=== PATIENT | female | born 1955 | race Hispanic/Latino ===

== ENCOUNTER 2022-08-19 21:04 | Emergency (ER) | payer BC ==
[~2022-08-19] VITALS: Ht 160 cm; Wt 60.8 kg
[2022-08-19 23:27] VITALS: BP 156/71
== END 2022-08-19 23:27 | disposition home or self-care (01) ==
LOC: FSED 21:08
DX: S93.492A Sprain of other ligament of left ankle, initial encounter (principal); W01.0XXA Fall on same level from slipping, tripping and stumbling without subsequent striking against object, initial encounter; Y93.01 Activity, walking, marching and hiking; Y92.89 Other specified places as the place of occurrence of the external cause; I10 Essential (primary) hypertension; E11.9 Type 2 diabetes mellitus without complications; E03.9 Hypothyroidism, unspecified
CPT/HCPCS: 99283